=== PATIENT | male | born 1965 | race Caucasian/White ===

== ENCOUNTER 2017-05-09 15:12 | Inpatient (IN) | payer MEDICARE, MEDICAID ==
[~2017-05-09] VITALS: Ht 177.8 cm; Wt 87.9 kg
[~2017-05-09 15:12] MED LIST: FERR-89 PO; LACT1TAB11 PO; PANT40TA25 PO; RISP3 PO
[2017-05-09] MEDS ORDERED: MULT-1192 PO (15:23)
[2017-05-09] MEDS ORDERED: FUROL PO (15:23)
[2017-05-09] MEDS ORDERED: FAMO20 PO (15:23)
[2017-05-09] MEDS ORDERED: OXYC-38 PO (15:23)
[2017-05-09] MEDS ORDERED: LORazepam 2 MG TABLET PO ONE (17:00)
[2017-05-09] MEDS ORDERED: SODIUM CHLORIDE 0.9% 1,000 ML IV ONE (17:00)
[2017-05-09 17:25] LABS: BASOPHILS # (AUTO) 0.05 K/uL (0.00-0.20); BASOPHILS % (AUTO) 0.4 % (0.0-2.0); EOSINOPHILS # (AUTO) 0.09 K/uL (0.00-0.70); HEMATOCRIT 43.1 % (41-53); HEMOGLOBIN 14.4 g/dL (13.5-17.5); LYMPHOCYTES # (AUTO) 1.7 K/uL (1.0-4.8); LYMPHOCYTES % (AUTO) 12.8 % (22.0-44.0); MEAN CORPUSCULAR HEMOGLOBIN 29.3 pg (26.0-34.0); MEAN CORPUSCULAR HGB CONC 33.4 G/dL (31.0-37.0); MEAN CORPUSCULAR VOLUME 88 fL (80-100); MONOCYTES # (AUTO) 0.7 K/uL (0.1-1.0); MONOCYTES % (AUTO) 5.2 % (2.0-9.0); PLATELET COUNT (AUTO) 271 K/uL (150-450); RED CELL DISTRIBUTION WIDTH 14.7 % (11.5-14.5); WHITE BLOOD COUNT (AUTO) 13.6 K/uL (4.5-11.0)
[2017-05-09 17:29] LABS: LACTIC ACID 1.5 mmol/L (0.4-2.0)
[2017-05-09 17:57] LABS: ALANINE AMINOTRANSFERASE 23 U/L (12-78); ALBUMIN 4.4 g/dL (3.4-5.0); ASPARTATE AMINOTRANSFERASE 20 U/L (15-37); BILIRUBIN,TOTAL 0.6 mg/dL (0.1-1.0); CALCIUM, TOTAL 9.4 mg/dL (8.8-10.5); CHLORIDE 99 mmol/L (98-107); CREATININE 0.98 mg/dL (0.60-1.30); GLOMERULAR FILTR. RATE CALC > 60 mL/min (>60); POTASSIUM 4.1 mmol/L (3.5-5.1); SODIUM SERUM 138 mmol/L (136-145); TOTAL PROTEIN, SERUM 8.8 g/dL (6.4-8.2); UREA NITROGEN, BLOOD 23 mg/dL (7-18)
[2017-05-09 18:04] LABS: ANION GAP 11 mmol/L (8-16); CARBON DIOXIDE 28 mmol/L (22-29)
[2017-05-09] MEDS ORDERED: LORazepam 2 MG TABLET PO PRN (18:15)
[2017-05-09] MEDS ORDERED: MAGNESIUM HYDROXIDE SUSPENSION 30 ML UDCUP PO PRN (18:15)
[2017-05-09] MEDS ORDERED: MAG HYDROX/AL HYDROX/SIMETH ES 30 ML SUSPENSION UDCUP PO PRN (18:15)
[2017-05-09] MEDS ORDERED: ACETAMINOPHEN 325 MG TABLET PO PRN (18:15)
[2017-05-09] MEDS ORDERED: PIPERACILLIN/TAZO 3.375 GM/D5W 50 ML IV ONE (19:00)
[2017-05-09] MEDS ORDERED: VANCOMYCIN HCL 1 GM/D5% WATER 200 ML IV ONE (19:00)
[2017-05-09 19:10] LABS: APPEARANCE,URINE CLEAR (CLEAR); GLUCOSE, URINE (UA) NEGATIVE (NEGATIVE); KETONES,URINE TRACE mg/dL (NEGATIVE); LEUKOCYTE ESTERASE ,URINE NEGATIVE (NEGATIVE); OCCULT BLOOD,URINE NEGATIVE (NEGATIVE); PH,URINE 5.5 (5.0-8.0); PROTEIN,URINE POS 1+ (NEGATIVE)
[2017-05-09 19:12] LABS: ADD UA MICROSCOPIC NO
[2017-05-10 04:46] LABS: CHOL/HDL RATIO 3.2 (4.2-7.3)
[2017-05-10 18:46] VITALS: BP 123/78
[2017-05-10] MEDS: HALOPERIDOL 5 MG TABLET PO PRN (18:47)
[2017-05-11] MEDS ORDERED: INFLUENZA VIRUS VACCINE QVS 2017-18 (3YR+)/PF 60 MCG/0.5 ML SYRINGE IM ONE (06:00)
[2017-05-11 08:00] VITALS: BP 115/68
[2017-05-11] MEDS: FAMOTIDINE 20 MG TABLET PO SCH ×2 (09:09→16:35)
[2017-05-11] MEDS: FUROSEMIDE 40 MG/5 ML SOLUTION UDCUP PO SCH (09:10)
[2017-05-11] MEDS: NICOTINE 21 MG/24 HOUR PATCH TD SCH (09:11)
[2017-05-11] MEDS ORDERED: LOPERAMIDE HCL 2 MG CAPSULE PO PRN (09:30)
[2017-05-11] MEDS ORDERED: ALBUTEROL SULFATE HFA 90 MCG/PUFF 8 GM INHALER IH PRN (09:30)
[2017-05-11] MEDS ORDERED: BENZOCAINE/MENTHOL LOZENGE [8 LOZENGES/PACKET] MM PRN (09:30)
[2017-05-11] MEDS ORDERED: CloNIDine HCL 0.1 MG TABLET PO PRN (09:30)
[2017-05-11] MEDS ORDERED: ONDANSETRON HCL 4 MG TABLET PO PRN (09:30)
[2017-05-11] MEDS ORDERED: BACITRACIN 28.4 GM OINTMENT TP PRN (09:30)
[2017-05-11] MEDS ORDERED: PETROLATUM,WHITE 71 GM JELLY TP PRN (09:30)
[2017-05-11] MEDS ORDERED: IBUPROFEN 600 MG TABLET PO PRN (09:30)
[2017-05-11] MEDS: ARIPiprazole 10 MG TABLET PO SCH (15:23)
[2017-05-11 16:30] VITALS: BP 111/69
[2017-05-12 06:54] VITALS: BP 102/60
[2017-05-12] MEDS: FAMOTIDINE 20 MG TABLET PO SCH ×2 (08:15→16:22)
[2017-05-12] MEDS: ARIPiprazole 10 MG TABLET PO SCH (08:15)
[2017-05-12] MEDS: HALOPERIDOL 5 MG TABLET PO PRN (08:16)
[2017-05-12] MEDS: NICOTINE 21 MG/24 HOUR PATCH TD SCH (08:18)
[2017-05-12] MEDS: FUROSEMIDE 40 MG/5 ML SOLUTION UDCUP PO SCH (08:19)
[2017-05-12 16:30] VITALS: BP 112/71
[2017-05-13] MEDS: NICOTINE 21 MG/24 HOUR PATCH TD SCH (08:58)
[2017-05-13] MEDS: FUROSEMIDE 40 MG/5 ML SOLUTION UDCUP PO SCH (08:59)
[2017-05-13] MEDS: FAMOTIDINE 20 MG TABLET PO SCH ×2 (09:00→16:21)
[2017-05-13] MEDS: ARIPiprazole 10 MG TABLET PO SCH (09:02)
[2017-05-13] MEDS ORDERED: ARIPiprazole LAUROXIL ER SUSPENSION 882 MG/3.2 ML SYRINGE IM SCH (15:00)
[2017-05-14 08:22] LABS: BASOPHILS # (AUTO) 0.03 K/uL (0.00-0.20); BASOPHILS % (AUTO) 0.4 % (0.0-2.0); EOSINOPHILS # (AUTO) 0.13 K/uL (0.00-0.70); EOSINOPHILS % (AUTO) 1.53 % (1.0-6.0); HEMATOCRIT 43.2 % (41-53); HEMOGLOBIN 14.3 g/dL (13.5-17.5); LYMPHOCYTES # (AUTO) 1.1 K/uL (1.0-4.8); LYMPHOCYTES % (AUTO) 12.3 % (22.0-44.0); MEAN CORPUSCULAR HEMOGLOBIN 29.2 pg (26.0-34.0); MEAN CORPUSCULAR VOLUME 88 fL (80-100); MONOCYTES # (AUTO) 0.5 K/uL (0.1-1.0); MONOCYTES % (AUTO) 5.7 % (2.0-9.0); NEUTROPHILS # (AUTO) 6.8 K/uL (1.8-7.7); PLATELET COUNT (AUTO) 229 K/uL (150-450); RED BLOOD CELL COUNT(AUTO) 4.89 MIL/uL (4.50-5.90); WHITE BLOOD COUNT (AUTO) 8.5 K/uL (4.5-11.0)
[2017-05-14 08:43] LABS: ALANINE AMINOTRANSFERASE 21 U/L (12-78); ALBUMIN 3.6 g/dL (3.4-5.0); ANION GAP 8 mmol/L (8-16); ASPARTATE AMINOTRANSFERASE 15 U/L (15-37); BILIRUBIN,TOTAL 0.3 mg/dL (0.1-1.0); CALCIUM, TOTAL 8.6 mg/dL (8.8-10.5); CARBON DIOXIDE 28 mmol/L (22-29); CHLORIDE 102 mmol/L (98-107); CREATININE 0.87 mg/dL (0.60-1.30); GLOMERULAR FILTR. RATE CALC > 60 mL/min (>60); PHOSPHORUS 3.5 mg/dL (2.5-4.9); POTASSIUM 4.3 mmol/L (3.5-5.1); SODIUM SERUM 138 mmol/L (136-145); UREA NITROGEN, BLOOD 14 mg/dL (7-18)
[2017-05-14] MEDS: FUROSEMIDE 40 MG/5 ML SOLUTION UDCUP PO SCH (08:52)
[2017-05-14] MEDS: ARIPiprazole 10 MG TABLET PO SCH (08:52)
[2017-05-14] MEDS: FAMOTIDINE 20 MG TABLET PO SCH ×2 (08:52→18:03)
[2017-05-14] MEDS: NICOTINE 21 MG/24 HOUR PATCH TD SCH (08:55)
[2017-05-14 16:54] VITALS: BP 146/84
[2017-05-15] MEDS: ZOLPIDEM TARTRATE 10 MG TABLET PO PRN (00:50)
[2017-05-15 02:49] VITALS: BP 140/89
[2017-05-15 09:13] VITALS: BP 107/75
[2017-05-15] MEDS: ARIPiprazole 10 MG TABLET PO SCH (09:37)
[2017-05-15] MEDS: FAMOTIDINE 20 MG TABLET PO SCH ×2 (09:37→17:45)
[2017-05-15] MEDS: FUROSEMIDE 40 MG/5 ML SOLUTION UDCUP PO SCH (09:37)
[2017-05-15] MEDS: NICOTINE 21 MG/24 HOUR PATCH TD SCH (09:39)
[2017-05-15 16:33] VITALS: BP 109/77
[2017-05-16 08:28] VITALS: BP 105/66
[2017-05-16] MEDS: ARIPiprazole 10 MG TABLET PO SCH (09:49)
[2017-05-16] MEDS: NICOTINE 21 MG/24 HOUR PATCH TD SCH (09:49)
[2017-05-16] MEDS: FUROSEMIDE 40 MG/5 ML SOLUTION UDCUP PO SCH (09:49)
[2017-05-16] MEDS: FAMOTIDINE 20 MG TABLET PO SCH ×2 (09:50→16:15)
[2017-05-16 16:30] VITALS: BP 108/64
[2017-05-16] MEDS: ZOLPIDEM TARTRATE 10 MG TABLET PO PRN (21:12)
[2017-05-17 05:54] VITALS: BP 111/67
[2017-05-17] MEDS: NICOTINE 21 MG/24 HOUR PATCH TD SCH (09:00)
[2017-05-17] MEDS: ARIPiprazole 10 MG TABLET PO SCH (09:16)
[2017-05-17] MEDS: FAMOTIDINE 20 MG TABLET PO SCH ×2 (09:17→16:09)
[2017-05-17] MEDS: FUROSEMIDE 40 MG/5 ML SOLUTION UDCUP PO SCH (09:18)
[2017-05-17 09:54] VITALS: BP 117/68
[2017-05-17 16:50] VITALS: BP 121/64
[2017-05-17] MEDS: ZOLPIDEM TARTRATE 10 MG TABLET PO PRN (21:57)
[2017-05-18 04:09] VITALS: BP 109/67
[2017-05-18] MEDS: NICOTINE 21 MG/24 HOUR PATCH TD SCH (09:00)
[2017-05-18 09:03] VITALS: BP 127/71
[2017-05-18] MEDS: FAMOTIDINE 20 MG TABLET PO SCH (09:06)
[2017-05-18] MEDS: ARIPiprazole 10 MG TABLET PO SCH (09:06)
[2017-05-18] MEDS: FUROSEMIDE 40 MG/5 ML SOLUTION UDCUP PO SCH (09:06)
[2017-05-18] MEDS ORDERED: ARIP10TA8 PO (10:46)
[2017-05-18] MEDS ORDERED: ARIP882S IM (10:46)
[2017-05-18] MEDS ORDERED: FURO20 PO (10:48)
[2017-06-12] MEDS ORDERED: ARIPiprazole LAUROXIL ER SUSPENSION 882 MG/3.2 ML SYRINGE IM SCH (09:00)
== END 2017-05-18 14:25 | DRG 885 ==
LOC: EMS 15:14 → 3EC 05-10 17:00 → 3EI 05-14 12:45
PROVIDERS: ADMIT Psychiatry & Neurology Child & Adolescent Psychiatry; ATTEND Psychiatry & Neurology Child & Adolescent Psychiatry
DX: F20.0 Paranoid schizophrenia (principal); R45.851 Suicidal ideations; E83.51 Hypocalcemia; D64.9 Anemia, unspecified; F32.9 Major depressive disorder, single episode, unspecified; F41.9 Anxiety disorder, unspecified; F13.90 Sedative, hypnotic, or anxiolytic use, unspecified, uncomplicated; K21.9 Gastro-esophageal reflux disease without esophagitis; J44.9 Chronic obstructive pulmonary disease, unspecified; Z96.642 Presence of left artificial hip joint; G47.00 Insomnia, unspecified; K59.00 Constipation, unspecified; F17.210 Nicotine dependence, cigarettes, uncomplicated; M79.662 Pain in left lower leg; M79.661 Pain in right lower leg; Z79.899 Other long term (current) drug therapy; Z89.412 Acquired absence of left great toe; Z86.718 Personal history of other venous thrombosis and embolism; Z71.6 Tobacco abuse counseling
CPT/HCPCS: 82306; 83605; 83735; 84100; 84443; 87040; 87081; 93925; 93970; 96365; 96366; 96368; 99285; G0480; J2543; J3370; J7030